=== PATIENT | male | born 1985 | race Caucasian/White ===

== ENCOUNTER 2017-04-26 09:30 | Inpatient (IN) | payer OTHER ==
[~2017-04-26] VITALS: Ht 182.9 cm; Wt 76.4 kg
[2017-04-26 11:48] LABS: UA SPECIFIC GRAVITY 1.025 (1.005-1.035); microscopic required? YES; urine erythrocyte 3+ (NEGATIVE)
[2017-04-26 13:18] LABS: BASOPHIL % 0.4 % (0-2); PLATELET COUNT 198 x10^3mcL (130-400); RED CELL DISTRIBUTION WIDTH 13.6 % (11.5-14.5)
[2017-04-26 13:25] LABS: CALCIUM 8.8 mg/dL (8.5-10.1); CARBON DIOXIDE 27.7 mmol/L (21-32); CHLORIDE SERUM 106 mmol/L (98-107); CREATININE SERUM 0.8 mg/dL (0.7-1.3); GFR1 > 60 mL/min; GLUCOSE SERUM 81 mg/dL (74-106); POTASSIUM SERUM 3.5 mmol/L (3.5-5.1); SODIUM SERUM 142 mmol/L (136-145)
[2017-04-26 13:36] LABS: ALBUMIN 4.5 g/dL (3.4-5.0); ALKALINE PHOSPHATASE 78 U/L (46-116); ALT/SGPT 32 U/L (16-63); AST/SGOT 29 U/L (15-37); BILIRUBIN TOTAL 1.32 mg/dL (0.20-1.00); TOTAL PROTEIN, SERUM 7.7 g/dL (6.4-8.2)
[2017-04-26 13:52] LABS: CK-MB 0.9 ng/mL (0-3.6)
[2017-04-26] MEDS ORDERED: NORCO1 TA2 PO (14:06)
[2017-04-26] MEDS ORDERED: ZOFRAN ODT4 MG SL (14:06)
[2017-04-26 15:52] VITALS: BP 130/88
[2017-04-26 17:16] VITALS: BP 127/80
[2017-04-26 19:30] VITALS: BP 115/71
[2017-04-26 21:28] VITALS: BP 98/74
[2017-04-27 00:28] LABS: AMPHETAMINE QUAL UR NONE DETECTED (NEG <=1000)
[2017-04-27 05:59] VITALS: BP 107/64
[2017-04-27 06:29] LABS: CALCIUM 8.5 mg/dL (8.5-10.1); CARBON DIOXIDE 25.9 mmol/L (21-32); CHLORIDE SERUM 107 mmol/L (98-107); CREATININE SERUM 0.8 mg/dL (0.7-1.3); GFR1 > 60 mL/min; GLUCOSE SERUM 83 mg/dL (74-106); PHOSPHOROUS 3.4 mg/dL (2.5-4.9); POTASSIUM SERUM 3.4 mmol/L (3.5-5.1); SODIUM SERUM 141 mmol/L (136-145)
[2017-04-27 07:25] LABS: BASOPHIL % 0.5 % (0-2); PLATELET COUNT 162 x10^3mcL (130-400); RED CELL DISTRIBUTION WIDTH 13.5 % (11.5-14.5)
[2017-04-27 10:20] VITALS: BP 116/69
[2017-04-27 13:49] VITALS: BP 121/81
[2017-04-27 17:48] VITALS: BP 1119/79; BP 121/81
[2017-04-27 21:56] VITALS: BP 117/79
[2017-04-28 05:23] VITALS: BP 106/66
[2017-04-28 06:11] LABS: BASOPHIL % 0.5 % (0-2); PLATELET COUNT 173 x10^3mcL (130-400); RED CELL DISTRIBUTION WIDTH 13.5 % (11.5-14.5)
[2017-04-28 06:19] LABS: CALCIUM 8.4 mg/dL (8.5-10.1); CARBON DIOXIDE 26.4 mmol/L (21-32); CHLORIDE SERUM 108 mmol/L (98-107); CREATININE SERUM 0.9 mg/dL (0.7-1.3); GFR1 > 60 mL/min; GLUCOSE SERUM 86 mg/dL (74-106); POTASSIUM SERUM 3.6 mmol/L (3.5-5.1); SODIUM SERUM 143 mmol/L (136-145)
[2017-04-28 10:35] VITALS: BP 135/80
[2017-04-28 10:51] VITALS: BP 106/66
[2017-04-28 13:30] VITALS: BP 120/76
[2017-04-28] MEDS ORDERED: CEFDINIR300 M1 PO (14:03)
[2017-04-28] MEDS ORDERED: LAC PO (14:03)
== END 2017-04-28 15:00 | disposition home or self-care (01) | DRG 463 ==
LOC: ED 09:30 → DU 13:26 → MU 04-28 09:46
PROVIDERS: Emergency Medicine; ADMIT Family Medicine
DX: N10 Acute pyelonephritis (principal); N17.0 Acute kidney failure with tubular necrosis; Z93.6 Other artificial openings of urinary tract status; F12.10 Cannabis abuse, uncomplicated; E80.4 Gilbert syndrome; E80.6 Other disorders of bilirubin metabolism
CPT/HCPCS: 83880; J0696; J0713; J1885; J2270; J3480; J7030; Q0092

== ENCOUNTER 2017-05-01 03:25 | Emergency (ER) | payer OTHER ==
[~2017-05-01 03:25] MED LIST: CEFDINIR300 M1 PO; LAC PO; NORCO1 TA2 PO; ZOFRAN ODT4 MG SL
[2017-05-01 05:21] VITALS: BP 127/69
== END 2017-05-01 05:21 | disposition home or self-care (01) ==
LOC: ED 03:25
DX: S43.004A Unspecified dislocation of right shoulder joint, initial encounter (principal); X58.XXXA Exposure to other specified factors, initial encounter; Y93.89 Activity, other specified; Y99.8 Other external cause status; Y92.89 Other specified places as the place of occurrence of the external cause
CPT/HCPCS: J1885; J2704; J7030; Q0092

== ENCOUNTER 2017-09-30 18:25 | Inpatient (IN) | payer OTHER ==
[~2017-09-30] VITALS: Ht 182.9 cm; Wt 65.4 kg
[2017-09-30 20:29] LABS: UA SPECIFIC GRAVITY 1.025 (1.005-1.035); microscopic required? YES; urine erythrocyte 3+ (NEGATIVE)
[2017-09-30 20:56] LABS: BASOPHIL % 0.6 % (0-2); PLATELET COUNT 212 x10^3mcL (130-400); RED CELL DISTRIBUTION WIDTH 13.2 % (11.5-14.5)
[2017-09-30 21:14] LABS: CALCIUM 9.2 mg/dL (8.5-10.1); CARBON DIOXIDE 29.6 mmol/L (21-32); CHLORIDE SERUM 106 mmol/L (98-107); CREATININE SERUM 0.9 mg/dL (0.7-1.3); GFR1 > 60 mL/min; GLUCOSE SERUM 82 mg/dL (74-106); POTASSIUM SERUM 3.5 mmol/L (3.5-5.1); SODIUM SERUM 143 mmol/L (136-145)
[2017-09-30 21:19] LABS: ALBUMIN 4.3 g/dL (3.4-5.0); ALKALINE PHOSPHATASE 69 U/L (46-116); ALT/SGPT 26 U/L (16-63); AMYLASE 48 U/L (25-115); AST/SGOT 19 U/L (15-37); LIPASE 91 IU/L (73-393); TOTAL PROTEIN, SERUM 7.5 g/dL (6.4-8.2)
[2017-09-30 22:41] VITALS: BP 118/78
[2017-09-30 23:57] LABS: CHOLESTEROL/HDL RATIO 2.9; PHOSPHOROUS 3.7 mg/dL (2.5-4.9)
[2017-10-01 00:03] LABS: T3 TOTAL 1.75 ng/mL
[2017-10-01 00:07] LABS: FREE T4 1.34 ng/dL (0.76-1.46); FREE THYROXINE INDEX 4.2 ug/dL (1.4-4.5); T4(THYROXINE) 12.1 ug/dL (4.7-13.3)
[2017-10-01 04:32] LABS: AMPHETAMINE QUAL UR NONE DETECTED (NEG <=1000)
[2017-10-01 06:02] VITALS: BP 103/67
[2017-10-01 08:54] VITALS: BP 118/70
[2017-10-01 13:51] VITALS: BP 113/71
[2017-10-01 17:26] VITALS: BP 106/70
[2017-10-01 20:18] VITALS: BP 121/76
[2017-10-02 05:05] VITALS: BP 100/58
[2017-10-02 06:23] LABS: CARBON DIOXIDE 26.6 mmol/L (21-32); CHLORIDE SERUM 107 mmol/L (98-107); CREATININE SERUM 0.9 mg/dL (0.7-1.3); GFR1 > 60 mL/min; GLUCOSE SERUM 79 mg/dL (74-106); MAGNESIUM 2.2 mg/dL (1.8-2.4); PHOSPHOROUS 3.9 mg/dL (2.5-4.9); POTASSIUM SERUM 3.8 mmol/L (3.5-5.1); SODIUM SERUM 142 mmol/L (136-145)
[2017-10-02 06:28] LABS: BASOPHIL % 0.6 % (0-2); PLATELET COUNT 170 x10^3mcL (130-400); RED CELL DISTRIBUTION WIDTH 13.3 % (11.5-14.5)
[2017-10-02 09:19] VITALS: BP 114/67
[2017-10-02] MEDS ORDERED: BD LACTINEX1.4 MG PO (12:12)
[2017-10-02] MEDS ORDERED: KEFLEX500 M1 PO (12:12)
[2017-10-02 12:30] VITALS: BP 114/67
[2017-10-02 13:15] VITALS: BP 132/78
== END 2017-10-02 13:35 | disposition home or self-care (01) | DRG 463 ==
LOC: ED 18:25 → DU 21:57
PROVIDERS: Emergency Medicine; ADMIT Family Medicine
DX: N12 Tubulo-interstitial nephritis, not specified as acute or chronic (principal); N17.0 Acute kidney failure with tubular necrosis; R31.9 Hematuria, unspecified; R80.9 Proteinuria, unspecified; E80.6 Other disorders of bilirubin metabolism; N13.1 Hydronephrosis with ureteral stricture, not elsewhere classified; Q62.11 Congenital occlusion of ureteropelvic junction; Z83.3 Family history of diabetes mellitus; Z87.891 Personal history of nicotine dependence; Q62.10 Congenital occlusion of ureter, unspecified
CPT/HCPCS: 83880; 84439; J0696; J1885; J2270; J2765; J7030; Q0092

== ENCOUNTER 2017-11-18 03:10 | Emergency (ER) | payer OTHER ==
[~2017-11-18] VITALS: Ht 182.9 cm; Wt 71.7 kg
[~2017-11-18 03:10] MED LIST changes: +BD LACTINEX1.4 MG PO; +KEFLEX500 M1 PO
[2017-11-18 03:17] VITALS: Ht 182.9 cm; Wt 71.7 kg
[2017-11-18 04:44] VITALS: BP 123/88
== END 2017-11-18 04:44 | disposition home or self-care (01) ==
LOC: ED 03:10
DX: S61.210A Laceration without foreign body of right index finger without damage to nail, initial encounter (principal); Z98.890 Other specified postprocedural states; W54.0XXA Bitten by dog, initial encounter; Y93.89 Activity, other specified; Y92.89 Other specified places as the place of occurrence of the external cause; Y99.8 Other external cause status

== ENCOUNTER 2018-01-27 04:07 | Emergency (ER) | payer OTHER ==
[2018-01-27 06:02] VITALS: BP 121/74
== END 2018-01-27 06:02 | disposition home or self-care (01) ==
LOC: ED 04:07
DX: R10.9 Unspecified abdominal pain (principal)
CPT/HCPCS: J1885

== ENCOUNTER 2018-03-08 04:06 | Emergency (ER) | payer OTHER ==
[~2018-03-08] VITALS: Ht 182.9 cm; Wt 70.3 kg
[2018-03-08 04:14] VITALS: BP 134/85; Ht 182.9 cm; Wt 70.3 kg
== END 2018-03-08 05:00 | disposition left against medical advice (07) ==
LOC: ED 04:06
DX: R41.3 Other amnesia (principal)

== ENCOUNTER 2019-01-07 14:31 | Emergency (ER) | payer OTHER ==
[~2019-01-07] VITALS: Ht 182.9 cm; Wt 72.6 kg
[2019-01-07 15:13] VITALS: Ht 182.9 cm; Wt 72.6 kg
[2019-01-07 19:10] VITALS: BP 125/71
== END 2019-01-07 19:10 | disposition home or self-care (01) ==
LOC: ED 14:31
DX: S63.204A Unspecified subluxation of right ring finger, initial encounter (principal); F12.90 Cannabis use, unspecified, uncomplicated; Z98.890 Other specified postprocedural states; W23.0XXA Caught, crushed, jammed, or pinched between moving objects, initial encounter; Y93.67 Activity, basketball; Y92.310 Basketball court as the place of occurrence of the external cause; Y99.8 Other external cause status
CPT/HCPCS: A4570; J3490

== ENCOUNTER 2019-06-08 03:24 | Emergency (ER) | payer OTHER ==
[~2019-06-08] VITALS: Ht 182.9 cm; Wt 74.8 kg
[2019-06-08 03:28] VITALS: Ht 182.9 cm; Wt 74.8 kg
[2019-06-08 06:51] VITALS: BP 118/71
== END 2019-06-08 06:51 | disposition home or self-care (01) ==
LOC: ED 03:24
DX: S52.121A Displaced fracture of head of right radius, initial encounter for closed fracture (principal); Z98.890 Other specified postprocedural states; V87.8XXA Person injured in other specified noncollision transport accidents involving motor vehicle (traffic), initial encounter; Y93.55 Activity, bike riding; Y92.488 Other paved roadways as the place of occurrence of the external cause; Y99.8 Other external cause status

== ENCOUNTER 2019-08-23 08:56 | Emergency (ER) | payer OTHER ==
[~2019-08-23] VITALS: Ht 182.9 cm; Wt 76.7 kg
[2019-08-23 09:13] VITALS: Ht 182.9 cm; Wt 76.7 kg
[2019-08-23 14:20] VITALS: BP 124/77
== END 2019-08-23 14:20 | disposition home or self-care (01) ==
LOC: ED 08:56
DX: J02.9 Acute pharyngitis, unspecified (principal); F41.9 Anxiety disorder, unspecified; F32.9 Major depressive disorder, single episode, unspecified; Z98.890 Other specified postprocedural states
CPT/HCPCS: 87804; Q0092